=== PATIENT | female | born 1950 | race Caucasian/White ===

== ENCOUNTER 2018-03-05 15:59 | Emergency (ER) | payer MEDICARE, OTHER ==
[~2018-03-05] VITALS: Ht 157.5 cm; Wt 70.5 kg
[~2018-03-05 15:59] MED LIST: CLOT15CR62 TP; LORA10TA7 PO; MULT1CAP32 PO; NAPR-923 PO; RANI150T7 PO; TRAM50TA4 PO; TRIA15CR48 TP; [UNRECOGNIZED DRUG - CODE] PO; [UNRECOGNIZED DRUG - CODE] PO
[2018-03-05] MEDS ORDERED: DiphenhydrAMINE HCL 25 MG CAPSULE PO ONE (17:00)
[2018-03-05 17:50] VITALS: BP 119/63
== END 2018-03-05 17:56 | disposition home or self-care (01) ==
LOC: EMS 16:00
DX: L50.9 Urticaria, unspecified (principal); Z79.899 Other long term (current) drug therapy
CPT/HCPCS: 99282

== ENCOUNTER 2019-03-22 08:46 | Emergency (ER) | payer MEDICARE, OTHER ==
[~2019-03-22] VITALS: Ht 149.9 cm; Wt 78.0 kg
[2019-03-22] MEDS ORDERED: MethylPREDNISolone SOD SUCC 125 MG/2 ML VIAL IM ONE (11:30)
[2019-03-22] MEDS ORDERED: ACETAMINOPHEN 500 MG TABLET PO ONE (11:30)
[2019-03-22 12:56] VITALS: BP 100/54
== END 2019-03-22 13:00 | disposition home or self-care (01) ==
LOC: EMS 08:47
DX: J20.9 Acute bronchitis, unspecified (principal); L30.9 Dermatitis, unspecified
CPT/HCPCS: 96372; 99283; J2930